=== PATIENT | female | born 1990 | race Caucasian/White ===

== ENCOUNTER 2018-01-27 13:59 | Emergency (ER) | payer OTHER ==
--- NOTE | 2018-01-27 14:25 | PDOC ---
History of Present Illness - General Chief Complaint: Blood/Body Fluid Exposure SJR Stated Complaint: NEEDLE STICK INJURY Time Seen by Provider: 01/27/18 14:07 History Source: Patient Exam Limitations: No Limitations - History of Present Illness Initial Comments: 01/27/18 14:23 28 year old woman with no past medical history who presents after needle stick with a used 22G needle being used for injecting into an open incision during a lipsuction procedure in the OR. The patient reports that the needle pierced her R index finger and buffy blood. She rinsed the wound immediately after the incident. The patient denies any history of hepatitis B,C or HIV. The status of the OR patient is unknown at this time. Past History - Past Medical History Allergies/Adverse Reactions: Allergies Allergy/AdvReac Type Severity Reaction Status Date / Time No Known Allergies Allergy Verified 01/27/18 14:18 Home Medications: Ambulatory Orders Hiv Post Exposure Prophylaxis 1 each PO DAILY #28 kit 01/27/18 Raltegravir [Isentress] 400 mg PO BID 23 Days #46 tab 01/27/18 Review of Systems - Review of Systems Able to Perform ROS?: Yes Is the patient limited [place]ian proficient: No Constitutional: No: Chills, Diaphoresis, Fever HEENTM: No: Blurred Vision, Tearing Respiratory: No: Cough, Orthopnea, Shortness of Breath Cardiac (ROS): No: Chest Pain, Palpitations, Syncope ABD/GI: No: Constipated, Diarrhea, Nausea, Vomiting Integumentary: No: Bruising, Rash Neurological: No: Headache *Physical Exam - Physical Exam Comments: 01/27/18 17:01 GENERAL: Awake, alert, and fully oriented, in no acute distress HEAD: No signs of trauma, normocephalic, atraumatic EYES: EOMI, sclera anicteric, conjunctiva clear ENT: oropharynx clear without exudates. Moist mucosa NECK: Normal ROM LUNGS: No distress, speaks full sentences, clear to auscultation bilaterally HEART: Regular rate and rhythm, normal S1 and S2, no murmurs, rubs or gallops, peripheral pulses normal and equal bilaterally. ABDOMEN: Soft, nontender, normoactive bowel sounds. No guarding, no rebound. No masses EXTREMITIES : Normal inspection, Normal range of motion, no edema. No clubbing or cyanosis. No obvious finger laceration NEUROLOGICAL: Cranial nerves II through XII grossly intact. Normal speech, normal gait, no focal sensorimotor deficits SKIN: Warm, Dry, normal turgor, no rashes or lesions noted ED Treatment Course - LABORATORY CBC & Chemistry Diagram: 01/27/18 14:55 01/27/18 14:55 Medical Decision Making - Medical Decision Making 01/27/18 17:02 28 year old woman with no past medical history who presents after needle stick with a used 22G needle being used for injecting into an open incision during a lipsuction procedure in the OR. The patient reports that the needle pierced her R index finger and buffy blood. She rinsed the wound immediately after the incident. The patient denies any history of hepatitis B,C or HIV. The status of the OR patient is unknown at this time. ED Course: Patient presents after needlestick with OR patient with unknown HIV and hepatitis status. Per Risk Assessment Stratification Protocol (RASP) will prophylax for possible HIV exposure. 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 LFT, hepatitis panel, HIV 4th gen test. Will have patient follow with occupational health and PCP for serial titers and appropriate follow up. Gave patient instruction on ppx medications and thorough instructions or medications, follow up and plan. Patient stable for discharge. Informed of all lab and imaging results. Given follow up instructions and strict return precautions. Patient expressed understanding and agree to plan. *DC/Admit/Observation/Transfer Diagnosis at time of Disposition: Needlestick wound of finger - Discharge Dispostion Disposition: HOME Condition at time of disposition: Stable Decision to Admit order: No - Prescriptions Prescriptions: Hiv Post Exposure Prophylaxis 1 each PO DAILY #28 kit Raltegravir [Isentress] 400 mg PO BID 23 Days #46 tab - Referrals - Patient Instructions Printed Discharge Instructions: How to Handle Body Fluid Exposure -- Healthcare Worker Additional Instructions: You were seen in the ED after needlestick You are advised to follow up with your Primary Care Physician within 1 week. Call Occupational Health for further follow up and serial blood draws. You were given a 28 day HIV prophylaxis medication course. Please take medications as directed. Return to the ED immediately if you experience fever, weakness, nausea, vomiting , headaches, chest pain or shortness of breath. - Post Discharge Activity Forms/Work/School Notes: Back to Work
--- NOTE | 2018-01-27 14:32 | PDOC ---
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 Patient's hep B immunizations up-to-date Needle stick penetrated her finger broke the skin through blood Level III exposure, unknown HIV status recommendation prophylaxis until we can confirm patient's HIV status Patient will follow up with occupational health. Findings, the need for follow-up and strict return instructions discussed with patient.
[2018-01-27 14:34] VITALS: BP 121/89; PULSE 87; TEMP 98.4; BMI 29.2
[2018-01-27 15:24] LABS: BASO % 0.5 % (0-2.0); EOS % 0.7 % (0-4.5); HEMATOCRIT 38.2 % (32.4-45.2); HEMOGLOBIN 12.6 GM/dl (10.7-15.3); MCH 29.1 pg (25.7-33.7); MCHC 33.1 g/dl (32.0-36.0); MEAN PLT VOLUME 8.3 fl (7.5-11.1); MONO % 5.8 % (3.8-10.2); PLATELET COUNT 311 K/MM3 (134-434); RBC 4.34 M/mm3 (3.60-5.2); RDW 13.7 % (11.6-15.6); WHITE BLOOD COUNT 8.1 K/mm3 (4.0-10.8)
[2018-01-27 15:28] LABS: ALBUMIN 3.7 g/dl (3.5-5.0); ALK PHOS 56 U/L (32-92); ANION GAP 6 MMOL/L (8-16); BILIRUBIN,TOTAL 0.3 mg/dl (0.2-1.0); BLOOD UREA NITROGEN 14 mg/dl (7-18); CALCIUM 9.1 mg/dl (8.4-10.2); CHLORIDE 104 mmol/L (98-107); CO2 25 mmol/L (22-28); CREATININE 0.7 mg/dl (0.6-1.3); GLUCOSE,RANDOM 93 mg/dl (74-106); POTASSIUM 3.9 mmol/L (3.5-5.1); SGOT/AST 14 U/L (10-42); SGPT/ALT 11 U/L (10-40); SODIUM 135 mmol/L (136-145); TOT PROT 7.1 g/dl (6.4-8.3)
[2018-01-27 15:28] LABS: PH,URINE 5.5 (4.5-8); URINE APPEARANCE Clear; URINE BILIRUBIN Negative (NEGATIVE); URINE COLOR Yellow; URINE GLUCOSE (UA) Negative (NEGATIVE); URINE KETONE Negative (NEGATIVE); URINE LEUK ESTERASE 3+ (NEGATIVE); URINE NITRITE Negative (NEGATIVE); URINE PROTEIN Negative (NEGATIVE); URINE UROBILINOGEN 0.2 (0.2-1.0)
[2018-01-27 15:30] LABS: BILIRUBIN,DIRECT < 0.1 mg/dL (0.0-0.3)
[2018-01-27 15:37] LABS: HCG,QUALITATIVE URINE Negative
[2018-01-27 15:43] LABS: EPI CELLS 1+ /HPF
[2018-01-27] MEDS ORDERED: HIV POST EXPOSURE PROPHYLAXIS KIT NR ONE (15:55)
[2018-01-27] MEDS ORDERED: HIV POST EXPOSURE PROPHYLAXIS KIT PO ONE (16:18)
[2018-01-28 14:12] LABS: HEP.C VIRUS AB <0.1 s/co ratio (0.0-0.9)
== END 2018-01-27 16:37 | disposition home or self-care (01) ==
LOC: FER 13:59
DX: Z77.21 Contact with and (suspected) exposure to potentially hazardous body fluids (principal); W46.0XXA Contact with hypodermic needle, initial encounter; X58.XXXA Exposure to other specified factors, initial encounter; Y93.89 Activity, other specified; Y92.234 Operating room of hospital as the place of occurrence of the external cause; Y99.0 Civilian activity done for income or pay
CPT/HCPCS: 36415; 80048; 80074; 80076; 81003; 81015; 84703; 85025; 87389; 99282-25

== ENCOUNTER 2020-09-22 08:42 | Emergency (ER) | payer OTHER ==
[2020-09-22 08:57] VITALS: BP 126/86; PULSE 88; TEMP 99.4; BMI 34.7
[2020-09-22 09:41] LABS: BASO % 1.3 % (0-2.0); EOS % 2.1 % (0-4.5); HEMATOCRIT 41.7 % (32.4-45.2); HEMOGLOBIN 13.6 GM/dl (10.7-15.3); LYMPH % 25.6 % (8-40); MCH 28.4 pg (25.7-33.7); MCHC 32.6 g/dl (32.0-36.0); MEAN CELL VOLUME 87.2 fl (80-96); MEAN PLT VOLUME 8.4 fl (7.5-11.1); MONO % 5.1 % (3.8-10.2); NEUT % 65.9 % (42.8-82.8); PLATELET COUNT 336 10^3/uL (134-434); RBC 4.78 M/mm3 (3.60-5.2); RDW 14.8 % (11.6-15.6); WHITE BLOOD COUNT 8.1 K/mm3 (4.0-10.8)
[2020-09-22 09:51] LABS: ALBUMIN 3.9 g/dl (3.4-5.0); BILIRUBIN,TOTAL 0.5 mg/dl (0.2-1); CALCIUM 8.7 mg/dl (8.5-10); CREATININE 0.7 mg/dl (0.55-1.3); PHOSPHOROUS 3.3 mg/dl (2.5-4.9); TOT PROT 7.6 g/dl (6.4-8.2); URIC ACID 2.7 mg/dl (2.6-7.2)
[2020-09-22 12:20] LABS: HIV INTERPRETATION NEGATIVE (NEGATIVE)
== END 2020-09-22 09:29 | disposition home or self-care (01) ==
LOC: FER 08:42
DX: S61.233A Puncture wound without foreign body of left middle finger without damage to nail, initial encounter (principal); W46.1XXA Contact with contaminated hypodermic needle, initial encounter; Y92.9 Unspecified place or not applicable
CPT/HCPCS: 36415; 80053; 82465; 82977; 83615; 84100; 84478; 84550; 84702; 85025; 86317; 86704; 86706; 86803; 87340; 87389; 99283-25